=== PATIENT | female | born 1970 | race Caucasian/White ===

== ENCOUNTER 2019-09-13 15:04 | Emergency (ER) | payer OTHER ==
[2019-09-13] MEDS ORDERED: methylPREDNISolone 125 MG* 2 ML VIAL IV ONE (15:41)
[2019-09-13] MEDS ORDERED: Albuterol/Ipratropium NEB.SOL* Albuterol 2.5 MG/Ipratropium 0.5 MG 3 ML INH ONE (15:41)
[2019-09-13] MEDS ORDERED: NS 0.9% 1000 ML** 1,000 ML IV ONE (15:41)
--- NOTE | 2019-09-13 15:54 | ED ---
Shortness of Breath - HPI Summary HPI Summary: Patient is a 49 y/o F presenting to the ED for a chief complaint of shortness of breath that began 3 days ago. Patient is present with a female friend. Patient notes that she has shortness of breath at rest that is not relieved with the use of an albuterol inhaler. She reports using her albuterol inhaler every 2 hours without relief, and a steroid inhaler every morning for management of her asthma. She also reports pain that in the upper back and a mild cough. Patient denies fever, sore throat, or chest pain. Any recent travel is denied. She denies exposure to any new allergens, including perfumes or animals. PMHx is significant for hypothyroidism for which the patient takes levothyroxine. This year, the patient was unable to have a physical exam with her PCP because her appointment was cancelled, so she is concerned for her thyroid levels. PMHx is also significant for asthma, but she has not had an episode of asthma exacerbation in 10 years. - History of Current Complaint Chief Complaint: EDShortnessOfBreath Time Seen by Provider: 09/13/19 15:40 Hx Obtained From: Patient Onset/Duration: Sudden Onset, Still Present Timing: Constant Current Severity: Moderate Dyspnea At: Rest Aggravating Factors: Nothing Alleviating Factors: Nothing - No relief with albuterol Associated Signs & Symptoms: Cough (Nonproductive) - Allergy/Home Medications Allergies/Adverse Reactions: Allergies Allergy/AdvReac Type Severity Reaction Status Date / Time No Known Allergies Allergy Verified 09/13/19 15:13 PMH/Surg Hx/FS Hx/Imm Hx Previously Healthy: Yes Endocrine/Hematology History: Reports: Hx Thyroid Disease - Hypothyroidism Denies: Hx Diabetes Cardiovascular History: Denies: Hx Hypercholesterolemia, Hx Hypertension, Hx Pacemaker/ICD Respiratory History: Reports: Hx Asthma Sensory History: Denies: Hx Legally Blind, Hx Deafness, Hx Hearing Aid Opthamlomology History: Denies: Hx Legally Blind EENT History: Denies: Hx Deafness Psychiatric History: Denies: Hx Panic Disorder - Cancer History Hx Chemotherapy: No Hx Radiation Therapy: No - Surgical History Surgical History: Yes Surgery Procedure, Year, and Place: LUMPECTOMY 2005 Infectious Disease History: No Infectious Disease History: Denies: Traveled Outside the [place] in Last 30 Days - Family History Known Family History: Negative: Cardiac Disease, Hypertension, Diabetes - Social History Occupation: Employed Full-time Lives: With Family Alcohol Use: None Hx Substance Use: No Substance Use Type: Reports: None Hx Tobacco Use: No Smoking Status (MU): Never Smoked Tobacco Review of Systems Negative: Fever Negative: Sore Throat Negative: Chest Pain Positive: Shortness Of Breath, Cough Positive: Myalgia - Upper back All Other Systems Reviewed And Are Negative: Yes Physical Exam - Summary Physical Exam Summary: VITAL SIGNS: Reviewed. GENERAL: Patient is a well-developed and nourished FEMALE who is lying comfortable in the stretcher. Patient is not in any acute respiratory distress. HEAD AND FACE: No signs of trauma. No ecchymosis, hematomas or skull depressions. No sinus tenderness.. EYES: PERRLA, EOMI x 2, No injected conjunctiva, no nystagmus. EARS: Hearing grossly intact. Ear canals and tympanic membranes are within normal limits. MOUTH: Oropharynx within normal limits. NECK: Supple, trachea is midline, no adenopathy, no JVD, no carotid bruit, no c- spine tenderness, neck with full ROM. CHEST: Symmetric, no tenderness at palpation. LUNGS: Clear to auscultation bilaterally. No wheezing or crackles. Decreased breath sounds bilaterally. CVS: Regular rate and rhythm, S1 and S2 present, no murmurs or gallops appreciated. ABDOMEN: Soft, non-tender. No signs of distention. No rebound, no guarding, and no masses palpated. Bowel sounds are normal. EXTREMITIES: FROM in all major joints, no edema, no cyanosis or clubbing. NEURO: Alert and oriented x 3. No acute neurological deficits. Speech is normal and follows commands. SKIN: Dry and warm. Triage Information Reviewed: Yes Vital Signs On Initial Exam: Initial Vitals Temp Pulse Resp BP Pulse Ox 98.2 F 74 16 117/74 100 09/13/19 15:09 09/13/19 15:09 09/13/19 15:09 09/13/19 15:09 09/13/19 15:09 Vital Signs Reviewed: Yes Procedures - Sedation Patient Received Moderate/Deep Sedation with Procedure: No Diagnostics - Vital Signs Vital Signs Temp Pulse Resp BP Pulse Ox 09/13/19 15:09 98.2 F 74 16 117/74 100 - Laboratory Result Diagrams: 09/13/19 15:51 09/13/19 15:51 Lab Statement: Any lab studies that have been ordered have been reviewed, and results considered in the medical decision making process. - Radiology Chest X-ray Radiology Interpretation Completed By: Radiologist Summary of Radiographic Findings: Chest X-ray IMPRESSION: No active cardiopulmonary disease is noted. Reviewed by Dr. Clark. - EKG 15:53 Cardiac Rate: NL - 65 BPM EKG Rhythm: Sinus Rhythm ST Segment: Normal Ectopy: None Summary of EKG Findings: EKG at 15:53 shows normal sinus rhythm with 65 BPM, no ST elevations, normal axis, no STEMI. Reviewed and interpreted by Dr. Clark. Course/Dx - Course Assessment/Plan: Patient is a 49 y/o F presenting to the ED for a chief complaint of shortness of breath that began 3 days ago. Patient is present with a female friend. Patient notes that she has shortness of breath at rest that is not relieved with the use of an albuterol inhaler. She reports using her albuterol inhaler every 2 hours without relief, and a steroid inhaler every morning for management of her asthma. She also reports pain that in the upper back and a mild cough. Patient denies fever, sore throat, or chest pain. Any recent travel is denied. She denies exposure to any new allergens, including perfumes or animals. PMHx is significant for hypothyroidism for which the patient takes levothyroxine. This year, the patient was unable to have a physical exam with her PCP because her appointment was cancelled, so she is concerned for her thyroid levels. PMHx is also significant for asthma, but she has not had an episode of asthma exacerbation in 10 years. Blood work is without any significant abnormality. Coagulation is negative. TSH and free T4 is also normal. Chest x-ray shows no pneumonia. In the ED course the patient was given DuoNeb, Solu-Medrol and her symptoms significantly improved. Therefore, I believe the patient's symptoms are secondary to an asthma exacerbation. The patient will be discharged home to follow-up with her PCP. Patient is hemodynamically stable, and alert and oriented 3. - Diagnoses Differential Diagnosis/HQI/PQRI: Positive: Asthma, Bronchitis, CHF, Chest Wall Pain, COPD Exacerbation Provider Diagnoses: Asthma exacerbation Discharge ED - Sign-Out/Discharge Documenting (check all that apply): Patient Departure - Discharge - Discharge Plan Condition: Stable Disposition: HOME Prescriptions: Albuterol/Ipratropium NEB.JESENIA* [Duoneb (Albuterol 2.5 MG/Ipratropium 0.5 MG)] 1 neb INH Q4H PRN #1 [place]on PRN Reason: Shortness Of Breath Nebulizer and Compressor [Easy Neb Compressor Nebulizer] 1 each MC DAILY #1 each predniSONE 20 mg TAB [Deltasone 20 MG TAB*] 40 mg PO DAILY #8 tab Patient Education Materials: Asthma (ED) Referrals: Rochelle Cullen MD [Primary Care Provider] - Additional Instructions: FOLLOW UP WITH YOUR PRIMARY CARE PROVIDER WITHIN 3 DAYS. RETURN TO THE EMERGENCY DEPARTMENT FOR ANY WORSENING OR NEW SYMPTOMS. - Billing Disposition and Condition Condition: STABLE Disposition: Home - Attestation Statements Document Initiated by Jenaro: Yes Documenting Scribe: Sunni Esteban Provider For Whom Jenaro is Documenting (Include Credential): Sotero Clark MD Scribe Attestation: Sunni Johnson scribed for Sotero Clark MD on 09/13/19 at 1825. Scribe Documentation Reviewed: Yes Provider Attestation: The documentation as recorded by the Sunni tran accurately reflects the service I personally performed and the decisions made by , Sotero Clark MD Status of Scribe Document: Viewed
[2019-09-13 16:01] LABS: ABS Eosinophils 0.3 10^3/ul (0-0.6); ABS Lymphocytes 1.3 10^3/ul (1.0-4.8); ABS Monocytes 0.7 10^3/ul (0-0.8); ABS Neutrophils 4.1 10^3/ul (1.5-7.7); Eosinophil % 4.3 %; Hematocrit 39 % (35-47); Hemoglobin 13.7 g/dL (12.0-16.0); Lymphocyte % 20.9 %; Mean Corpuscular HGB Conc 35 g/dL (31-36); Mean Corpuscular Hemoglobin 34 pg (27-31); Mean Corpuscular Volume 97 fL (80-97); Platelet Count 267 10^3/uL (150-450); Red Blood Count 4.02 10^6 /uL (3.70-4.87); Red Cell Distribution Width 13 % (10-15); White Blood Count 6.4 10^3/uL (3.5-10.8)
[2019-09-13 16:22] LABS: ALT 15 U/L (7-52); AST 16 U/L (13-39); Albumin 4.3 g/dL (3.2-5.2); Albumin/Globulin Ratio 1.9 (1-3); Alkaline Phosphatase 30 U/L (34-104); Anion Gap 7 mmol/L (2-11); BUN/Creatinine Ratio 21.4 (8-20); Blood Urea Nitrogen 18 mg/dL (6-24); C Reactive Protein < 1.00 mg/L (<8.01); CO2 Carbon Dioxide 24 mmol/L (22-32); Calcium 9.6 mg/dL (8.6-10.3); Chloride 104 mmol/L (101-111); EGFR African American 86.5 (>60); EGFR Non-African American 71.5 (>60); Globulin 2.3 g/dL (2-4); Glucose 91 mg/dL (70-100); Sodium 135 mmol/L (135-145); Total Protein 6.6 g/dL (6.4-8.9)
[2019-09-13 17:42] LABS: TSH (Thyroid Stimulating Horm) 2.51 mcIU/mL (0.34-5.60)
[2019-09-13 18:11] VITALS: BP 98/52
== END 2019-09-13 18:11 | disposition home or self-care (01) ==
LOC: ED 15:04
DX: J45.901 Unspecified asthma with (acute) exacerbation (principal); R05 Cough; M54.6 Pain in thoracic spine; E03.9 Hypothyroidism, unspecified
CPT/HCPCS: 36415; 71046; 80053; 83605; 83880; 84439; 84443; 84484; 85025; 85379; 86140; 93005; 96361; 96374; 99283; A9270-GY; J2930